=== PATIENT | male | born 1970 | race Caucasian/White ===

== ENCOUNTER 2024-08-16 08:43 | Day surgery (SDC) | payer OTHER ==
[~2024-08-16] VITALS: Ht 177.8 cm; Wt 104.9 kg
[~2024-08-16 08:43] MED LIST: APAP500T10 PO; EZET10TA21 PO; FENO145T7 PO; FLUO1TAB3 PO; LIDOCAINE 2% 100MG/5ML SDV (FOR ANES.) As Ordered ONE; LISI10TA22 PO; MIDAZOLAM INJ 2MG/2ML VIAL As Ordered ONE; ROCURONIUM BROMIDE 50MG/5ML VIAL As Ordered ONE; fentaNYL 250 MCG/5 ML INJECTION As Ordered ONE; propofoL 200 MG/20 ML VIAL As Ordered ONE
[2024-08-16] MEDS ORDERED: LR 1,000 ML IV SCH ×3 (09:20→11:55)
[2024-08-16] MEDS: SCOPOLAMINE 1MG TRANSDERMAL PATCH As Ordered ONE (10:40)
[2024-08-16] MEDS: COCAINE 4% 4ML NASAL SOLUTION BTL As Ordered ONE (10:50)
[2024-08-16] MEDS ORDERED: ONDANSETRON 4MG 2ML VIAL As Ordered ONE (10:59)
[2024-08-16] MEDS ORDERED: KETOROLAC 30 MG/ML 1ML VIAL As Ordered ONE (10:59)
[2024-08-16] MEDS ORDERED: SUGAMMADEX SODIUM 500 MG/5 ML VIAL (BRIDION) As Ordered ONE (10:59)
[2024-08-16] MEDS ORDERED: ACETAMINOPHEN 1000MG/100ML IV BAG As Ordered ONE (10:59)
[2024-08-16] MEDS ORDERED: METOCLOPRAMIDE INJ 10MG/2ML VIAL As Ordered ONE (11:02)
[2024-08-16] MEDS: OXYMETAZOLINE 0.05% NASAL SPRAY As Ordered ONE (11:04)
[2024-08-16] MEDS: LIDOCAINE W/EPINEPHRINE 1% 20ML VIAL As Ordered ONE (11:30)
[2024-08-16] MEDS ORDERED: ONDANSETRON 4MG 2ML VIAL IV PRN (11:35)
[2024-08-16] MEDS ORDERED: HYDROMORPHONE HCL 0.5 MG/ 0.5 ML SYRINGE IV PRN (11:35)
[2024-08-16] MEDS ORDERED: fentaNYL 100 MCG/2 ML INJECTION IV PRN (11:35)
[2024-08-16] MEDS ORDERED: oxyCODONE 5MG TAB PO PRN (11:35)
[2024-08-16] MEDS ORDERED: ANEXSIA, NORCO 7.5MG/325MG TABLET(HYDROCODONE/APAP) PO PRN (11:55)
[2024-08-16] MEDS: OXYMETAZOLINE 0.05% NASAL SPRAY STA (12:25)
[2024-08-16 12:40] VITALS: BP 137/91; TEMP 97.3; O2SAT 98
== END 2024-08-16 13:15 | disposition home or self-care (01) ==
LOC: M SDC 08:43
PROVIDERS: ATTEND Otolaryngology
DX: J34.2 Deviated nasal septum (principal); J34.3 Hypertrophy of nasal turbinates; F43.10 Post-traumatic stress disorder, unspecified; G47.30 Sleep apnea, unspecified; Z88.5 Allergy status to narcotic agent; Z79.899 Other long term (current) drug therapy; Z87.891 Personal history of nicotine dependence
CPT/HCPCS: 30140; 30520; C9143; J0131; J1100; J2250; J2405; J2765; J3010